=== PATIENT | male | born 1960 | race African-American/Black ===

== ENCOUNTER 2017-07-15 12:37 | Emergency (ER) | payer OTHER ==
[~2017-07-15] VITALS: Ht 188 cm; Wt 113.5 kg
[2017-07-15 12:38] VITALS: BP 129/65; PULSE 72; RESP 16; TEMP 98.6; O2SAT 98
[2017-07-15] MEDS ORDERED: AUGM875T3 PO (13:02)
[2017-07-15] MEDS ORDERED: IBUP800T23 PO (13:02)
--- NOTE | 2017-07-15 13:04 | PD ---
HPI Chief Complaint: Skin Problem Time Seen by Provider: 13:01 Travel History International Travel<30 days: No Contact w/Intl Traveler<30days: No Traveled to known affect area: No History of Present Illness HPI 56-year-old male presents to emergency Department with complaint of a dog bite wound to his right medial ankle area that occurred today. He does not know the dog and does not know if it is owned by anybody. He doesn't know the vaccination status of the dog. Patient reports being up-to-date on his tetanus vaccination. Denies paresthesias, loss of sensation, decreased range motion, decreased strength to the affected extremity. Denies fever, vomiting. He is ambulatory on the affected extremity. Has not taken any medications or tried any treatments to alleviate his symptoms. Symptoms are mild in severity. No known allergies. Has no other medical complaints. No other modifying factors or associated signs and symptoms. PFSH Social History Alcohol Use: Yes Tobacco Use: No Substance Use: Yes (HX OF CRACK ) Allergies-Medications (Allergen,Severity, Reaction): Coded Allergies: No Known Allergies (Verified , 07/15/17) Reported Meds & Prescriptions Reported Meds & Active Scripts Active Ibuprofen 800 Mg Tab 800 Mg PO Q6HR PRN Augmentin (Amoxicillin-Clavulanate) 875-125 Mg Tab 1 Tab PO BID 10 Days Review of Systems Except as stated in HPI: all other systems reviewed are Neg Physical Exam Narrative GENERAL: Well-nourished, well-developed male patient, in no acute distress SKIN: Warm and dry. Right medial ankle area with approximately 3 cm laceration ; bleeding controlled. Right lower extremity supple and non-tense with 2+ pedal pulses and sensory intact without erythema or edema. Ankle and all toes with full range of motion. HEAD: Atraumatic. Normocephalic. EYES: Pupils equal and round. No scleral icterus. No injection or drainage. ENT: Mucosa pink and moist. Airway patent. NECK: Trachea midline. CARDIOVASCULAR: Regular rate. RESPIRATORY: No accessory muscle use. GASTROINTESTINAL: Flat. MUSCULOSKELETAL: No obvious deformities. No clubbing. No cyanosis. No edema. NEUROLOGICAL: Awake and alert. Oriented 3. No obvious cranial nerve deficits. Motor grossly within normal limits. Normal speech. PSYCHIATRIC: Appropriate mood and affect; insight and judgment normal. Data Data Last Documented VS Vital Signs Date Time Temp Pulse Resp B/P Pulse Ox O2 Delivery O2 Flow Rate FiO2 07/15/17 12:38 98.6 72 16 129/65 98 Room Air Orders Lidocaine 1% Inj (50 Ml) (Xylocaine 1% I (07/15/17 13:15) [facility] Medical Decision Making Medical Screen Exam Complete: Yes Emergency Medical Condition: Yes Medical Record Reviewed: Yes Differential Diagnosis Dog bite, laceration, abrasion Narrative Course 56-year-old male with a dog bite of his right ankle causing a laceration. Patient is up-to-date on his tetanus. He does not know the tetanus vaccination of the dog. The patient is declining rabies prophylaxis. See my procedure note for laceration repair. Augmentin and ibuprofen prescribed for home. Insect patient to return to the emergency department or follow-up with primary care provider in 10-14 days for staple removal. Instructed patient to follow up with primary care provider. Patient verbalizes understanding and agreement with treatment plan. Patient is medically cleared and stable for discharge. Discussed reasons to return to the emergency department. Patient agrees with treatment plan. The patients vital signs are stable and the patient is stable for outpatient follow-up and treatment. Patient discharged home, stable and in no acute distress. Procedures Procedure Narrative LACERATION LOCATION: Right medial ankle LENGTH: 3 cm NUMBER OF STITCHES/CRYSTAL: 5 wide crystal REPAIR: The area of the laceration was prepped with Betadine and sterilely draped. The laceration was infiltrated with 1% lidocaine. The wound was copiously irrigated and explored without evidence of foreign body, tendon injury or neurovascular injury. The wound was closed using wide crystal. This was a single layer repair. A sterile dressing was applied. The patient was advised to keep the dressing clean and dry. Patient tolerated the procedure well. Diagnosis Primary Impression: Dog bite of ankle Qualified Code: S91.051A - Dog bite of right ankle, initial encounter Additional Impression: Laceration of right ankle Qualified Code: S91.011A - Laceration of right ankle, initial encounter Referrals: Primary Care Physician Patient Instructions: Animal Bite (ED), General Instructions, Laceration (ED), Staple Care (ED) Departure Forms: Tests/Procedures, Work Release Enter return to work date: Jul 18, 2017 Additional Instructions: Antibiotics as prescribed and complete full course Keep area clean and dry Ibuprofen or Tylenol as directed and as needed for pain and inflammation Ice pack to area as needed to decrease pain Return to the emergency department or follow-up with primary care provider in 10 -14 days for suture removal Follow up with primary care provider within 2-4 days Return to the emergency department immediately with worsening of symptoms, particularly if reddened streaks up or down the affected extremity from the staple site, fever, numbness/tingling in the affected extremity, loss of sensation in the affected extremity, severe swelling of the affected Med/Other Pt SpecificInfo: Prescription(s) given Scripts Ibuprofen 800 Mg [id number] Mg PO Q6HR PRN (PAIN) #30 TAB Ref 0 Prov:Ines Hays 07/15/17 Amoxicillin-Clavulanate (Augmentin)875-125 Mg Tab1 Tab PO BID 10 Days Ref 0 Prov:Ines Hays 07/15/17 Disposition: 01 DISCHARGE HOME Condition: Stable Ines Hays Jul 15, 2017 13:04
[2017-07-15] MEDS ORDERED: LIDOCAINE HCL 1% 50 ML VIAL INFIL ONE (13:15)
== END 2017-07-15 14:31 | disposition home or self-care (01) ==
LOC: NEPK 12:37
DX: S91.051A Open bite, right ankle, initial encounter (principal); W54.0XXA Bitten by dog, initial encounter
CPT/HCPCS: 99283

== ENCOUNTER 2017-07-26 12:55 | Emergency (ER) | payer SELFPAY ==
[~2017-07-26 12:55] MED LIST: AUGM875T3 PO; IBUP800T23 PO
[2017-07-26 12:57] VITALS: BP 122/59; PULSE 76; RESP 20; TEMP 97.8; O2SAT 97
--- NOTE | 2017-07-26 13:42 | PD ---
HPI Chief Complaint: Wound/Suture/Staple Re-Check Time Seen by Provider: 13:17 Travel History International Travel<30 days: No Contact w/Intl Traveler<30days: No Traveled to known affect area: No History of Present Illness HPI 56 old man says post dog bite about 10 days ago here for staple removal. Doing well. No infection. History Past Medical History Medical History: Denies Significant Hx Tetanus Vaccination: < 5 Years Social History Alcohol Use: Yes Tobacco Use: No Allergies-Medications (Allergen,Severity, Reaction): Coded Allergies: No Known Allergies (Verified , 07/26/17) Reported Meds & Prescriptions Reported Meds & Active Scripts Active Ibuprofen 800 Mg Tab 800 Mg PO Q6HR PRN Review of Systems General / Constitutional: No: Fever, Chills Musculoskeletal: No: Myalgias, Arthralgias Physical Exam Narrative GENERAL: Well-appearing 56 old man, no acute distress. SKIN: Warm and dry. CARDIOVASCULAR: Warm and well perfused. RESPIRATORY: Normal rate and effort. MUSCULOSKELETAL: Well-healing incision on the anterior ankle. We'll approximate. No erythema or redness. NEUROLOGICAL: Awake and alert. No gross deficits. Data Data Last Documented VS Vital Signs Date Time Temp Pulse Resp B/P (MAP) Pulse Ox O2 Delivery O2 Flow Rate FiO2 07/26/17 12:57 97.8 76 20 122/59 (80) 97 Room Air MDM Medical Decision Making Medical Screen Exam Complete: Yes Emergency Medical Condition: Yes Differential Diagnosis Laceration repair Narrative Course Well-healing laceration, crystal removed. Diagnosis Primary Impression: Laceration of right ankle Qualified Codes: S91.011D - Laceration without foreign body, right ankle, subsequent encounter Med/Other Pt SpecificInfo: No Change to Meds Disposition: 01 DISCHARGE HOME Condition: Stable Andreas Lemus MD Jul 26, 2017 13:42
== END 2017-07-26 14:12 | disposition home or self-care (01) ==
LOC: NEPD 12:55
DX: Z48.02 Encounter for removal of sutures (principal); S91.011D Laceration without foreign body, right ankle, subsequent encounter
CPT/HCPCS: 99281